=== PATIENT | female | born 1965 | race Caucasian/White ===

== ENCOUNTER 2016-10-14 09:11 | Day surgery (SDC) | payer OTHER ==
[~2016-10-14 09:11] MED LIST: LIDOCAINE W/ SODIUM BICARB 0.5 ML SYR ONE; Lactated Ringers 1,000 ML PRIMARY IV ONE; ceFAZolin Inj 2gm (Premix) 50 ML IV ONE
[2016-10-14 09:44] LABS: URINE SPECIFIC GRAVITY - MAN 1.026
[2016-10-14] MEDS ORDERED: Ondansetron ODT Tab 8 MG TAB PO PRN (09:51)
[2016-10-14] MEDS ORDERED: Prochlorperazine Edisylate Inj 10mg/2ml vial IVP PRN (09:51)
[2016-10-14] MEDS ORDERED: ONDANSETRON 4 MG/2 ML VIAL IVP PRN ×2 (09:51→12:13)
[2016-10-14] MEDS ORDERED: HYDROmorphone 2 MG/1 ML IVP PRN (09:51)
[2016-10-14] MEDS ORDERED: fentaNYL Inj 100 MCG/2 ML VIAL IVP PRN (09:51)
[2016-10-14] MEDS ORDERED: ATROPINE SULFATE 0.4 MG/1 ML VIAL IVP PRN (09:51)
[2016-10-14] MEDS ORDERED: NORMAL SALINE 10 ML SYRINGE FLUSH IVP PRN ×2 (09:51→12:13)
[2016-10-14] MEDS ORDERED: Lactated Ringers 1,000 ML PRIMARY IV SCH ×2 (10:00→12:15)
[2016-10-14] MEDS ORDERED: MIDAZOLAM 5 MG/1 ML ONE (10:24)
[2016-10-14] MEDS ORDERED: fentaNYL Inj 250 MCG/5 ML VIAL ONE (10:24)
[2016-10-14] MEDS ORDERED: Sodium Chloride 0.9% vial 10 ML ONE (10:24)
[2016-10-14] MEDS ORDERED: LIDOCAINE MPF 2% - 5 ML (20 MG/1 ML) ONE (10:24)
[2016-10-14] MEDS ORDERED: Ropivacaine 0.2% VIAL 20 ML ONE (10:33)
[2016-10-14] MEDS ORDERED: SODIUM CL 0.9% FOR INH 3 ML NEB NEB ONE (10:33)
[2016-10-14] MEDS ORDERED: EPINEPHrine Inj (1:1,000) 30mg/30ml vial ONE (10:33)
[2016-10-14] MEDS ORDERED: DEXAMETHASONE PF 10 MG/1 ML VIAL ONE (11:11)
[2016-10-14] MEDS ORDERED: BETAMET ACET/BETAMET NA PH 6 MG/1 ML - 5 ML ONE (11:33)
[2016-10-14] MEDS ORDERED: ONDANSETRON 4 MG/2 ML VIAL ONE (11:37)
[2016-10-14] MEDS ORDERED: oxyCODONE/APAP 7.5/325 Tab 1 TAB TAB PO PRN (12:13)
[2016-10-14] MEDS ORDERED: MORPHINE SULFATE 2 MG/1 ML IVP PRN (12:13)
[2016-10-14] MEDS ORDERED: oxyCODONE/APAP 7.5/325 Tab 1 TAB TAB PO ONE (12:30)
[2016-10-14 13:29] VITALS: TEMP 98
[2016-10-14 13:31] VITALS: RESP 14
== END 2016-10-14 13:30 | disposition home or self-care (01) ==
LOC: SDSC 09:11
PROVIDERS: ATTEND Orthopaedic Surgery
DX: M12.561 Traumatic arthropathy, right knee (principal); M76.891 Other specified enthesopathies of right lower limb, excluding foot; M22.41 Chondromalacia patellae, right knee
CPT/HCPCS: 29876; 84703; A4216; J0171; J0690; J0702; J2704; J2795; J3010; J1100; J2001; J2250; J2405; J7120

== ENCOUNTER → 2016-10-27 | Outpatient (CLI) | payer OTHER ==
--- NOTE | 2016-10-27 12:24 | DI ---
US UP/LOW EXT VEINS U/L OR LTD,10/27/2016 10:49 AM: Clinical History: Right calf pain. Previous Exam: None at this facility. Findings: Multiple grayscale and color Doppler sonographic images are obtained of the right lower remedy, and d emonstrate complete coaptation upon graded compression throughout the deep veins of the right lower e xtremity. There is normal Doppler flow with normal respiratory variation and augmentation. Impression: No evidence of deep venous thrombosis.
== END ==
LOC: US 10:43
PROVIDERS: ATTEND Orthopaedic Surgery
DX: M79.661 Pain in right lower leg (principal)
CPT/HCPCS: 93971

== ENCOUNTER → 2017-01-09 | Outpatient (CLI) | payer OTHER ==
--- NOTE | 2017-01-10 12:21 | DI ---
RIGHT KNEE, 01/09/2017 10:10 AM: Clinical History: Right knee pain. Previous Exam: 01/28/2016. 3 views are submitted. The AP projection is a weightbearing view. There is no acute soft tissue, osse ous, or joint abnormality. There is moderate narrowing of the medial compartment, and this is unchang ed from the previous exam. 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
== END ==
LOC: ORTHO 11:20
PROVIDERS: ATTEND Orthopaedic Surgery
DX: M25.561 Pain in right knee (principal); M17.11 Unilateral primary osteoarthritis, right knee
CPT/HCPCS: 73562

== ENCOUNTER → 2017-02-17 | Outpatient (CLI) | payer OTHER ==
--- NOTE | 2017-02-17 13:56 | DI ---
MRI LOW EXTREMITY JNT W/O CN,02/17/2017 12:59 PM: Clinical History: Knee pain. Previous Exam: August 11, 2016 Findings: Multiplanar MR images are obtained through the right knee without contrast. Bony alignment is anatomi c. No fractures are seen. Marrow signal is preserved. There are full-thickness defects involving the trochlea with some subchondral edema. There is some stable free edge toward the of the medial meniscus. There is a stable Bianchi's cyst which dissects superiorly into the soft tissues of the knee. The major vascular flow voids are unremarkable. The subcutaneous fat is also unremarkable. There is some thinning of the articular cartilage. The anterior and posterior cruciate ligaments are intact. The medial and lateral collateral ligaments are also intact. There is no significant knee joint effusion. The quadriceps and patellar tendons are normal. The thickening of the patellar tendon is still visibl e, but there has been resolution of the edema within the patellar tendon. The major vascular flow voids are unremarkable. Signal within the musculature is also unremarkable. Impression: 1. Mild bony edema predominantly involving the trochlear cartilage of the distal femur most consisten t with full-thickness osteochondral defects. 2. No Bianchi's cyst. 3. Stable free edge tearing of the body of the medial meniscus. 4. Interval resolution of the edema of the patellar tendon near its attachment on the inferior margin of the patella. This is consistent with some resolving patellar tendinitis.
== END ==
LOC: MRI 12:51
PROVIDERS: ATTEND Orthopaedic Surgery
DX: M25.561 Pain in right knee (principal); S83.241A Other tear of medial meniscus, current injury, right knee, initial encounter; S83.8X1A Sprain of other specified parts of right knee, initial encounter
CPT/HCPCS: 73721

== ENCOUNTER → 2017-03-06 | Outpatient (CLI) | payer OTHER ==
[2017-03-06 08:24] LABS: HEMATOCRIT 44.7 % (37.0-47.0); MEAN CORPUSCULAR HEMOGLOBIN 30.7 PG (27-31); MEAN CORPUSCULAR HGB CONC 33.6 g/dL (33-37); MEAN CORPUSCULAR VOLUME 91.6 FL (81-99); MEAN PLATELET VOLUME 9.5 FL (7.4-12.2); RED BLOOD COUNT 4.88 10^6/uL (4.20-5.40)
[2017-03-06 08:39] LABS: FASTING GLUCOSE 82 mg/dL (78-110)
[2017-03-06 09:00] LABS: BLOOD UREA NITROGEN 12 mg/dL (7-22); BUN/CREATININE RATIO 17.14 (6-20); CALCIUM 9.6 mg/dL (8.7-10.7); CHOL/HDL RATIO 2.83 RATIO (0-4.0); EST GLOMERULAR FILTRATION > 60 (>60 ml/min/1.73m(2)); HDL CHOLESTEROL 71 mg/dL (40-150); SERUM ALBUMIN 4.5 g/dL (3.5-4.8); SERUM CHOLESTEROL 201 mg/dL (120-200)
[2017-03-06 09:16] LABS: FREE T4 (FREE THYROXINE) 1.19 ng/dL (0.93-1.71)
== END ==
LOC: LAB 08:05
PROVIDERS: ATTEND Family Medicine
DX: Z00.01 Encounter for general adult medical examination with abnormal findings (principal); R63.5 Abnormal weight gain
CPT/HCPCS: 36415; 80053; 80061; 82951; 82952; 83525; 84439; 84443; 85027